=== PATIENT | male | born 1935 | race Caucasian/White ===

== ENCOUNTER → 2018-02-05 | Outpatient (CLI) | payer MEDICARE, BC ==
[~2018-02-05] MED LIST: IOPAMIDOL 370 MG/ML 200 ML INFUS..BTL INJ ONE; SODIUM CHLORIDE 0.9% 100 ML 100 ML ONE
[2018-02-05 15:15] LABS: BLOOD UREA NITROGEN 17 mg/dL (7-26); BUN/CREATININE RATIO 15 (6-25); CREATININE, SERUM 1.15 mg/dL (0.72-1.25); EST GLOMERULAR FILTRATION RATE > 60 ML/MIN (60-)
--- NOTE | 2018-02-06 08:43 | Diagnostic Imaging Report ---
Exams: Neck and intracranial CT angiogram CT History: Dizziness, carotid stenosis, Comparison studies:None Technique: Axial images were obtained from the thoracic inlet. Coronal and sagittal images reconstructed from the axial data. Additional volume rendered 3-D images and MIP images were reformatted from the axial source data. Dose modulation, iterative reconstruction, and/or weight based adjustment of the mA/kV was utilized to reduce the radiation dose to as low as reasonably achievable. Intravenous contrast: 100 cc of Omnipaque 300. Findings: Cervical CTA: If present, stenosis is calculated utilizing the NASCET method which calculates the degree of stenosis with reference to the normal lumen of the carotid artery distal to the stenosis Aortic arch and major vessels: Scattered hard and soft plaque. No significant stenosis in the bilateral subclavian arteries, right brachycephalic trunk or at the left common carotid artery origin. Right carotid: Patent with moderate calcified and mild soft plaque at the bifurcation which extends into the carotid bulb where there is approximately 20% stenosis. Mild nonstenotic hard plaque at the external carotid artery origin. Tortuous internal carotid artery without stenosis. Left carotid: Mild scattered hard plaque without significant stenosis in the common carotid artery, moderate hard plaque at the bifurcation which extends to the carotid bulb and left ICA origin where there is approximately 15-20% stenosis. Vertebral arteries: Patent bilaterally with mild stenosis at the origins due to hard plaque. Intracranial CTA: Internal carotid arteries: Patent with scattered calcified plaque in the cavernous and paraophthalmic segments which do not result in significant stenosis. Anterior cerebral arteries: Patent bilateral A1 and left A1 segments. The right A2 YAHAIRA segment is occluded with linear calcification along its more distal occluded segment within the anterior interhemispheric fissure. Middle cerebral arteries: Patent bilateral M1 and proximal M2 segments.. Vertebral arteries: Patent. No abnormalities. Basilar artery: Patent, no abnormalities. Posterior cerebral arteries: Patent, no abnormalities Anatomical variants: Acom: Patent . Pcoms: Not well visualized, possibly hypoplastic. Vertebral arteries: Codominant Included brain: Generalized volume loss with chronic microvascular ischemic changes and chronic vascular insults in the left MCA territory, left occipital lobe in the left [employer] territory and in the right YAHAIRA territory. Cervical spine: Multilevel disc degeneration, greatest at C5-C6 and C6-C7. Minimal retrolisthesis of C3 on C4 with associated mild canal stenosis at this level. Moderate foraminal stenosis from C3 to C6 due to uncovertebral and facet arthrosis Additional findings: Paraseptal and centrilobular emphysema with fibrotic changes in the included lungs bilaterally with nonspecific mildly prominent mediastinal lymph nodes. Cardiac device implanted within the left chest wall with partially imaged cardiac leads which extend into the right SVC (distal tip outside imaged [id number]. IMPRESSION: Cervical CTA: 1. Atherosclerotic plaques as described. 2. Approximately 20% stenosis at the right carotid bulb. 3. Approximately 15-20% stenosis in the distal left carotid bulb/left ICA origin. 4. Mild stenosis at the bilateral vertebral artery origins. 5. Emphysema with fibrotic changes and mildly prominent nonspecific mediastinal lymph nodes. Dedicated chest CT could further evaluate if not recently performed. Intracranial CTA: 1. Nonstenotic calcified atherosclerosis in the carotid siphons. 2. Occluded right A2 YAHAIRA segment. 3. No other major branch occlusion or hemodynamically significant stenosis. 4. Included brain with generalized volume loss, chronic microvascular ischemic changes and multi territory cortical/subcortical vascular insults. Signed by: Dr. Scot Kaminski M.D. on 02/06/2018 8:39 AM
== END ==
LOC: CT 14:08
PROVIDERS: ATTEND Internal Medicine Cardiovascular Disease
DX: I65.29 Occlusion and stenosis of unspecified carotid artery (principal); R42 Dizziness and giddiness; R55 Syncope and collapse
CPT/HCPCS: 36415; 70496; 70498; 82565; 84520; Q9967